=== PATIENT | male | born 2000 | race Caucasian/White ===

== ENCOUNTER 2020-05-15 10:07 | Emergency (ER) | payer OTHER, SELFPAY ==
--- NOTE | 2020-05-15 10:10 | ED.GENADULT ---
HPI - General Adult General Chief complaint: Upper Respiratory Infection Stated complaint: cold symptoms Time Seen by Provider: 05/15/20 10:09 Source: patient Mode of arrival: ambulatory Limitations: no limitations History of Present Illness HPI narrative: 19-year-old male patient presents to the [facility] with complaints of cold symptoms that started yesterday. Patient states he has had a stuffy nose, a mild nonproductive cough and a sore throat. Denies any fevers, ear pain. Denies any chest pain or shortness of breath. Denies any abdominal pain, nausea, vomiting or diarrhea. Patient states he has been taking some [id number] cough medicine. Patient states he is here because he is requiring a note for work to state that he is sick. Related Data Home Medications Medication Instructions Recorded Confirmed No Home Medications 05/15/20 05/15/20 Allergies Allergy/AdvReac Type Severity Reaction Status Date / Time No Known Allergies Allergy Verified 05/15/20 10:18 Review of Systems Review of Systems: Narrative: CONSTITUTIONAL: Denies fever, chills, or sweats. EYES: Denies visual changes, redness, or discharge. ENT: Denies rhinorrhea, positive congestion, sore throat, denies otalgia. CARDIOVASCULAR: Denies chest pain, palpitations, or edema. RESPIRATORY: Positive mild nonproductive cough, denies dyspnea. GASTROINTESTINAL: Denies abdominal pain, nausea, vomiting, or diarrhea. GENITOURINARY: Denies dysuria or hematuria. SKIN: Denies rash or itching. MUSCULOSKELETAL: Denies back pain, joint pain, or myalgia. NEUROLOGIC: Denies headache, numbness, or weakness. PSYCHIATRIC: Denies anxiety or depression. PMFSH Comments At the time of my signature I agree with nursing past medical history, surgical, social, and family history. There is no relevant family history pertinent to the presenting complaint. Exam Narrative: Exam Narrative: GENERAL: Well-appearing, well-nourished, and in no acute distress. HEAD: Normocephalic, atraumatic. EYES: PERRLA and EOMI. ENT: Nares with erythema and edema noted bilaterally, no rhinorrhea or epistaxis. Mucous membranes moist. Posterior pharynx with some erythema but no tonsil enlargement, no exudates or lesions present. Bilateral TMs are clear no erythema or foreign bodies to the canal. NECK: Supple. No lymphadenopathy CHEST: Clear to auscultation. No respiratory distress. HEART: Regular rate and rhythm. No murmur heard. Normal peripheral pulses. ABDOMEN: Soft, nontender, nondistended, normal active bowel sounds. EXTREMITIES: Normal range of motion. No edema. SKIN: Warm, dry, no rash. NEURO: No focal deficits. Alert and oriented x3. Course Reevaluation(s) Reevaluation #1: Reevaluated patient after his test had resulted. Discussed with him that he is negative today for flu and strep. Discussed with him that we will go ahead and send him for COVID testing. Discussed with patient I will write him a note for work stating that I did see him today and that he has been sent for, testing however he cannot return to work until he has had the results come back. Discussed with him that even once he has the results back and if the test results are negative he needs to refer to his workplace policy or the health department on when he can return to work after a negative result. Patient verbalized understanding of this denies any other questions or concerns at this time. Date: 05/15/20 Time: 10:41 Vital Signs Vital signs: Vital Signs Temperature 37.1 C 05/15/20 10:14 Pulse Rate 136 H 05/15/20 10:14 Respiratory Rate 12 05/15/20 10:14 Blood Pressure 107/71 05/15/20 10:14 Pulse Oximetry 100 05/15/20 10:14 Temperature 37.1 C 05/15/20 10:14 Pulse Rate 136 H 05/15/20 10:14 Respiratory Rate 12 05/15/20 10:14 Blood Pressure 107/71 05/15/20 10:14 Pulse Oximetry 100 05/15/20 10:14 Vital signs reviewed. Radial pulse taken manually and was found to be 116. Medic
[2020-05-15 10:14] VITALS: BP 107/71; PULSE 136; RESP 12; TEMP 37.1; O2SAT 100
== END 2020-05-15 10:55 | disposition home or self-care (01) ==
PROVIDERS: Emergency Provider Nurse Practitioner Family
DX: J06.9 Acute upper respiratory infection, unspecified (principal); R05 Cough; Z20.828 Contact with and (suspected) exposure to other viral communicable diseases
CPT/HCPCS: 87081; 87804; 87880; 99213; G0463

== ENCOUNTER 2020-05-15 11:01 | Outpatient (NON) | payer OTHER, SELFPAY ==
[2020-05-16 14:17] LABS: SARS-CoV-2 RNA PCR Negative
== END 2020-05-15 11:02 ==
PROVIDERS: Visit Provider Nurse Practitioner Family
DX: Z20.828 Contact with and (suspected) exposure to other viral communicable diseases (principal); J06.9 Acute upper respiratory infection, unspecified
CPT/HCPCS: 87635; C9803; U0003